=== PATIENT | male | born 1980 ===

== ENCOUNTER 2019-09-18 19:58 | Emergency (ER) | payer SELFPAY ==
[~2019-09-18] VITALS: Ht 172.7 cm; Wt 86.4 kg
[2019-09-18] MEDS ORDERED: normal saline 1000ML IV soln IVB ONE ×2 (20:30→22:10)
[2019-09-18] MEDS ORDERED: LORazepam 2 mg/ml vial IV ONE ×2 (20:30→22:10)
[2019-09-18] MEDS ORDERED: ondansetron/PF 4mg/2ml inj IV ONE (20:30)
[2019-09-18] MEDS ORDERED: iohexol 350MG/ML 100ml bottle IV ONE (20:35)
[2019-09-18] MEDS: morphine 4 MG/ML inj SYRINge IV PRN ×2 (20:38→21:06)
[2019-09-18 20:42] LABS: BASOPHILS % (AUTO) 0.2 % (0-1); EOSINOPHILS # (AUTO) 0.1 X10'3 (0-0.9); EOSINOPHILS % (AUTO) 0.5 % (0-6); HEMATOCRIT 49.7 % (42.0-52.0); HEMOGLOBIN 16.6 g/dl (14.0-17.9); LYMPHOCYTES # (AUTO) 2.2 X10'3 (1.1-4.8); LYMPHOCYTES % (AUTO) 18.2 % (21-51); MEAN CORPUSCULAR HEMOGLOBIN 30.8 PG (27.0-31.0); MEAN CORPUSCULAR HGB CONC 33.5 g/dL (33.0-36.5); MEAN CORPUSCULAR VOLUME 92.1 FL (78-98); MEAN PLATELET VOLUME 10.9 FL (7.4-10.4); MONOCYTES % (AUTO) 7.7 % (2-12); NEUTROPHILS # (AUTO) 9.1 X10'3 (1.8-7.7); NEUTROPHILS % (AUTO) 73.4 % (42-75); PLATELET COUNT 191 X10'3 (140-440); RED CELL DISTRIBUTION WIDTH 13.3 % (11.5-14.5); WHITE BLOOD COUNT 12.4 X10'3 (4.5-11.0)
[2019-09-18 20:55] LABS: ANION GAP 10 (8-16); BLOOD UREA NITROGEN 7 MG/DL (7-18); CHLORIDE 106 MMOL/L (99-107); CREATININE 1.29 MG/DL (0.60-1.10); GLUCOSE 109 MG/DL (70-104); POTASSIUM 3.6 MMOL/L (3.5-5.1); SODIUM 142 MMOL/L (135-145); TOTAL CARBON DIOXIDE 26.5 MMOL/L (24-32)
[2019-09-18 20:56] LABS: ALANINE AMINOTRANSFERASE 27 U/L (12-78); ALBUMIN 4.1 G/DL (3.4-5.0); ALBUMIN/GLOBULIN RATIO 1.1 (1.1-1.5); ALKALINE PHOSPHATASE 100 IU/L (46-116); ASPARTATE AMINO TRANSFERASE 33 U/L (10-37); BILIRUBIN,TOTAL 0.5 MG/DL (0.1-1.0); BUN/CREATININE RATIO 5.4 (5.4-32.0); ETHANOL < 0.010 GM/DL (0.0-0.010); LIPASE 70 U/L (73-393); TOTAL PROTEIN 7.7 G/DL (6.4-8.2); eGFR 62 ML/MIN
[2019-09-18] MEDS ORDERED: haloperidol lactate 5mg/ml inj IM ONE ×2 (21:30→22:15)
[2019-09-18] MEDS ORDERED: famotidine/PF 10 mg/ml inj IV ONE (21:30)
[2019-09-18 21:37] LABS: CLARITY,URINE CLEAR (Clear); COLOR,URINE YELLOW (Yellow); GLUCOSE, URINE NEGATIVE (Neg); KETONES,URINE NEGATIVE (Neg); LEUKOCYTE ESTERASE ,URINE NEGATIVE (Neg); NITRITES, URINE NEGATIVE (Neg); OCCULT BLOOD,URINE NEGATIVE (Neg); PROTEIN,URINE NEGATIVE (Neg); UROBILINOGEN,URINE 0.2 E.U/dL (0.2-1.0)
[2019-09-18 21:40] LABS: UA COLLECTION TYPE CLN CATCH MIDSTREAM
[2019-09-18 21:50] LABS: URINE AMPHETAMINE SCREEN NEGATIVE (Neg); URINE BARBITUATE SCREEN NEGATIVE (Neg); URINE BENZODIAZEPINES SCREEN NEGATIVE (Neg); URINE CANNABINOID SCREEN POSITIVE (Neg); URINE COCAINE SCREEN NEGATIVE (Neg); URINE METHADONE SCREEN NEGATIVE (Neg); URINE OPIATE SCREEN POSITIVE (Neg); URINE PHENCYCLIDINE SCREEN NEGATIVE (Neg)
[2019-09-18] MEDS ORDERED: sucralfate 1 gm tablet PO ONE (22:10)
[2019-09-18] MEDS ORDERED: LIDOcaine Viscous 15ml cup MM ONE (22:10)
[2019-09-18] MEDS ORDERED: mag hydrox/Alum hydrox/simeth 30ml oral suspension PO ONE (22:10)
[2019-09-18 22:46] VITALS: BP 163/110
== END 2019-09-18 23:20 | disposition home or self-care (01) ==
LOC: ER 19:58
DX: R10.13 Epigastric pain (principal); R07.89 Other chest pain; R11.2 Nausea with vomiting, unspecified; F17.200 Nicotine dependence, unspecified, uncomplicated; F12.90 Cannabis use, unspecified, uncomplicated; Z72.89 Other problems related to lifestyle; Z91.030 Bee allergy status
CPT/HCPCS: 36415; 71045; 71275; 74174; 80053; 80305; 80320; 81003; 83690; 84484; 85025; 93005; 96361; 96372; 96374; 96375; 96376; 99285; J1630; J2060; J2270; J2405; J3490; J7030; Q9967